=== PATIENT | female | born 1945 | race Caucasian/White ===

== ENCOUNTER → 2016-09-23 | Outpatient (CLI) | payer MEDICARE, OTHER ==
[~2016-09-23] MED LIST: ACID REDUCER20 MG PO; ASPIR 8181 MG PO; CALCIUM600 MG PO; COQ-10100 MG PO; CORDARONE 200M200 MG PO; ELIQUIS5 MG PO; FLECAINIDE ACET50 MG PO; LEXAPRO10 MG PO; SYNTHROID25 MCG PO; TRAMADOL HCL50 MG PO; TYLENOL 325MG325 MG PO; VIT B12 FOLIC ACID PO; VITAMIN B12-FO1 EACH PO; VITAMIN D31000 UNIT PO; ZANTAC300 MG PO; ZOCOR 10 MG TAB10 MG PO
== END ==
LOC: KOH-I 10:26
DX: M25.561 Pain in right knee (principal)
CPT/HCPCS: 73562

== ENCOUNTER → 2020-07-10 | Outpatient (CLI) | payer MEDICARE, OTHER ==
[~2020-07-10] MED LIST changes: +BENADRYL 25MG C25 MG PO; +CATAPRES 0.1MG0.1 MG PO; +CLARITIN10 MG PO; +CRESTOR5 MG PO; +NORVASC 5 MG TAB5 MG PO; +PSYLLIUM FIBE0.52 GM PO; +TRETIN X TP; +VITAMIN B-121000 MCG PO
== END ==
LOC: MAMO 14:02
DX: Z12.31 Encounter for screening mammogram for malignant neoplasm of breast (principal); Z78.0 Asymptomatic menopausal state
CPT/HCPCS: 77063; 77067

== ENCOUNTER → 2020-12-11 | Outpatient (CLI) | payer MEDICARE, OTHER | LOC: KOH-I 10:28 | DX: M79.672 Pain in left foot (principal) | CPT/HCPCS: 73630; 73650 ==

== ENCOUNTER → 2021-05-23 | Outpatient (CLI) | payer MEDICARE, OTHER | LOC: HEART 5 07:42 | DX: I20.9 Angina pectoris, unspecified (principal) | CPT/HCPCS: 78452; A9502 ==

== ENCOUNTER → 2021-06-07 | Outpatient (CLI) | payer MEDICARE, OTHER ==
[2021-06-07 12:23] LABS: HEMOGLOBIN 13.8 gm/dl (12.3-15.3); RED BLOOD COUNT 4.63 M/UL (4.00-5.10); WHITE BLOOD COUNT 7.1 K/UL (4.5-11.0)
[2021-06-08 08:13] LABS: CALCIUM, SERUM 9.5 mg/dL (8.7-10.3); CREATININE, SERUM 0.93 mg/dL (0.57-1.00); POTASSIUM, SERUM 4.2 mmol/L (3.5-5.2)
== END ==
LOC: LAB 11:42
PROVIDERS: Internal Medicine Cardiovascular Disease
DX: R94.39 Abnormal result of other cardiovascular function study (principal); I20.9 Angina pectoris, unspecified; I10 Essential (primary) hypertension; I48.0 Paroxysmal atrial fibrillation
CPT/HCPCS: 36415; 71046; 80048; 85025

== ENCOUNTER 2021-06-11 08:08 | Outpatient (CLI) | payer MEDICARE, OTHER ==
[~2021-06-11] VITALS: Ht 160 cm; Wt 80.0 kg
[~2021-06-11 08:08] MED LIST changes: -NORVASC 5 MG TAB5 MG PO; +NORVASC5 MG PO
[2021-06-11] MEDS ORDERED: RANOLAZINE ER500 MG PO (08:46)
[2021-06-11] MEDS ORDERED: PROTONIX 40 MG40 M1 PO (08:47)
[2021-06-11] MEDS ORDERED: SERTRALINE HCL100 MG PO (08:50)
[2021-06-12 03:09] LABS: HEMOGLOBIN 12.8 gm/dl (12.3-15.3); RED BLOOD COUNT 4.29 M/UL (4.00-5.10); WHITE BLOOD COUNT 8.7 K/UL (4.5-11.0)
[2021-06-12] MEDS ORDERED: BRILINTA90 MG PO (08:47)
== END 2021-06-12 11:40 | disposition home or self-care (01) ==
LOC: CATH 08:08 → PROG CARE 12:47 → CATH 06-12 11:40
PROVIDERS: Internal Medicine Interventional Cardiology
DX: I25.119 Atherosclerotic heart disease of native coronary artery with unspecified angina pectoris (principal); I48.0 Paroxysmal atrial fibrillation; I10 Essential (primary) hypertension; I49.5 Sick sinus syndrome; E78.5 Hyperlipidemia, unspecified; I49.1 Atrial premature depolarization; K21.9 Gastro-esophageal reflux disease without esophagitis; E03.9 Hypothyroidism, unspecified; G47.33 Obstructive sleep apnea (adult) (pediatric); Z88.2 Allergy status to sulfonamides; Z88.8 Allergy status to other drugs, medicaments and biological substances; Z79.01 Long term (current) use of anticoagulants; Z90.49 Acquired absence of other specified parts of digestive tract; Z20.822 Contact with and (suspected) exposure to COVID-19
CPT/HCPCS: 36415; 80048; 85027; 85347; 93005; 99152; 99153; C1725; C1769; C1874; C1887; C1894; C9600; J0583; J1644; J2250; J2405; J3010; J7030; Q9967

== ENCOUNTER 2021-06-15 13:15 | Observation (INO) | payer MEDICARE, OTHER ==
[~2021-06-15] VITALS: Ht 157.5 cm; Wt 78.0 kg
[~2021-06-15 13:15] MED LIST changes: +BRILINTA90 MG PO; +PROTONIX 40 MG40 M1 PO; +RANOLAZINE ER500 MG PO; +SERTRALINE HCL100 MG PO
[2021-06-15 13:40] LABS: RED BLOOD COUNT 4.66 M/UL (4.00-5.10); WHITE BLOOD COUNT 6.5 K/UL (4.5-11.0)
[2021-06-16 03:06] LABS: HEMOGLOBIN 13.8 gm/dl (12.3-15.3); RED BLOOD COUNT 4.62 M/UL (4.00-5.10); WHITE BLOOD COUNT 6.9 K/UL (4.5-11.0)
[2021-06-17 04:41] LABS: HEMOGLOBIN 13.8 gm/dl (12.3-15.3); RED BLOOD COUNT 4.68 M/UL (4.00-5.10); WHITE BLOOD COUNT 6.3 K/UL (4.5-11.0)
[2021-06-17] MEDS ORDERED: CLOPIDOGREL75 MG PO (10:14)
== END 2021-06-17 12:43 | disposition home or self-care (01) ==
LOC: ER1 13:15 → MED SURG 4 15:36 → CDU 15:36 → MED SURG 4 17:54
PROVIDERS: Physician Assistant; Student in an Organized Health Care Education/Training Program; ADMIT Internal Medicine
DX: R06.02 Shortness of breath (principal); R07.89 Other chest pain; I44.0 Atrioventricular block, first degree; I49.5 Sick sinus syndrome; R77.8 Other specified abnormalities of plasma proteins; I48.0 Paroxysmal atrial fibrillation; I10 Essential (primary) hypertension; E78.5 Hyperlipidemia, unspecified; E03.9 Hypothyroidism, unspecified; G47.33 Obstructive sleep apnea (adult) (pediatric); R11.0 Nausea; R51.9 Headache, unspecified; I25.10 Atherosclerotic heart disease of native coronary artery without angina pectoris; Z95.5 Presence of coronary angioplasty implant and graft; Z79.01 Long term (current) use of anticoagulants; Z85.828 Personal history of other malignant neoplasm of skin; Z96.652 Presence of left artificial knee joint; Z90.49 Acquired absence of other specified parts of digestive tract; Z88.2 Allergy status to sulfonamides; Z98.890 Other specified postprocedural states; Z82.49 Family history of ischemic heart disease and other diseases of the circulatory system; Z20.822 Contact with and (suspected) exposure to COVID-19
CPT/HCPCS: 36415; 71045; 80048; 80053; 82550; 82553; 82962; 83874; 84439; 84443; 84484; 85025; 93005; 99285; G0378; U0002

== ENCOUNTER → 2021-07-05 | Outpatient (CLI) | payer MEDICARE, OTHER ==
[~2021-07-05] MED LIST changes: +CLOPIDOGREL75 MG PO
== END ==
LOC: KOH-I 11:36
DX: M25.511 Pain in right shoulder (principal)
CPT/HCPCS: 73030

== ENCOUNTER → 2021-09-26 | Outpatient (CLI) | payer MEDICARE, OTHER | LOC: MRI 09-20 10:28 | DX: M50.31 Other cervical disc degeneration, high cervical region (principal); M48.02 Spinal stenosis, cervical region | CPT/HCPCS: 72156; A9577 ==

== ENCOUNTER → 2021-12-06 | Outpatient (CLI) | payer MEDICARE, OTHER | LOC: EXRD 11:16 | DX: I10 Essential (primary) hypertension (principal); I25.10 Atherosclerotic heart disease of native coronary artery without angina pectoris; G45.9 Transient cerebral ischemic attack, unspecified; R42 Dizziness and giddiness; R51.9 Headache, unspecified | CPT/HCPCS: 93880 ==

== ENCOUNTER → 2022-02-04 | Outpatient (CLI) | payer MEDICARE, OTHER | LOC: KOH-I 09:37 | DX: M79.672 Pain in left foot (principal) | CPT/HCPCS: 73630 ==

== ENCOUNTER → 2022-02-05 | Outpatient (CLI) | payer MEDICARE, OTHER | LOC: EMI 01-21 10:30 | DX: G45.9 Transient cerebral ischemic attack, unspecified (principal); G31.9 Degenerative disease of nervous system, unspecified | CPT/HCPCS: 70551 ==